=== PATIENT | male | born 1955 | race African-American/Black ===

== ENCOUNTER → 2019-11-16 | Outpatient (RCR) | payer MEDICARE, OTHER | LOC: PT 11-05 14:35 | PROVIDERS: ATTEND Specialist | DX: M75.122 Complete rotator cuff tear or rupture of left shoulder, not specified as traumatic (principal); M75.121 Complete rotator cuff tear or rupture of right shoulder, not specified as traumatic; M25.512 Pain in left shoulder; M25.511 Pain in right shoulder; M25.612 Stiffness of left shoulder, not elsewhere classified; M25.611 Stiffness of right shoulder, not elsewhere classified; M62.81 Muscle weakness (generalized) ==

== ENCOUNTER → 2019-12-17 | Outpatient (RCR) | payer MEDICARE, OTHER ==
[~2019-12-17] MED LIST: FAMOTIDINE 20 MG TAB ONE; LORAZEPAM INJ 2 MG/ML VIAL ONE
== END ==
LOC: PT 11-19 09:21
PROVIDERS: ATTEND Specialist
DX: M75.122 Complete rotator cuff tear or rupture of left shoulder, not specified as traumatic (principal); M75.121 Complete rotator cuff tear or rupture of right shoulder, not specified as traumatic; M25.512 Pain in left shoulder; M25.511 Pain in right shoulder; M25.612 Stiffness of left shoulder, not elsewhere classified; M25.611 Stiffness of right shoulder, not elsewhere classified; M62.81 Muscle weakness (generalized)
CPT/HCPCS: 97110 ×11; 97139; J2060

== ENCOUNTER 2020-01-03 11:00 | Outpatient (RCR) | payer MEDICARE, OTHER | END 2020-01-16 | LOC: PT 11:00 | PROVIDERS: ATTEND Specialist | DX: M75.122 Complete rotator cuff tear or rupture of left shoulder, not specified as traumatic (principal); M75.121 Complete rotator cuff tear or rupture of right shoulder, not specified as traumatic; M25.512 Pain in left shoulder; M25.511 Pain in right shoulder; M62.81 Muscle weakness (generalized); M25.612 Stiffness of left shoulder, not elsewhere classified; M25.611 Stiffness of right shoulder, not elsewhere classified ==